=== PATIENT | male | born 2000 | race Caucasian/White ===

== ENCOUNTER 2020-05-20 01:54 | Emergency (ER) | payer SELFPAY ==
[~2020-05-20] VITALS: Ht 175.3 cm; Wt 77.1 kg
[2020-05-20 02:01] VITALS: BP 140/89
--- NOTE | 2020-05-20 02:01 | NUR ---
NATE GRANDEP TAKEN TO CHAIR A
--- NOTE | 2020-05-20 02:12 | NUR ---
PATIENT BIB [facility]. PATIENT EXAMINED BY DR. CARMONA. PATIENT MEDICALLY CLEARED AND RELEASED IN CUSTODY IN STABLE CONDITION. ORIGINAL PRE-BOOK FORM GIVEN TO OFFICER HOLLY, #[id number].
== END 2020-05-20 02:13 ==
LOC: MED 01:54
DX: F10.129 Alcohol abuse with intoxication, unspecified (principal); Z02.89 Encounter for other administrative examinations; V87.2XXA Person injured in collision between car and pick-up truck or van (traffic), initial encounter; Y93.89 Activity, other specified; Y92.89 Other specified places as the place of occurrence of the external cause; Y99.8 Other external cause status
CPT/HCPCS: 99283